=== PATIENT | male | born 1975 | race Caucasian/White ===

== ENCOUNTER 2018-01-22 09:32 | Emergency (ER) | payer BC, MEDICAID ==
[2018-01-22 09:58] VITALS: BP 137/83
--- NOTE | 2018-01-22 11:07 | UC ---
Complaint Male HPI - HPI Summary HPI Summary: patient states he has had burning urination for about 7 days, which improved intermittently but recurred yesterday. He noticed blood as he wipped off after voiding in the morning. Denies fever, chills or flank pain. Denies history of STD, penile discharge or history of kidney stones. Denies trauma or medicaitons , denies epistaxis, melena or any triggers such as exercise or sexual intercourse. States he does not take any medications - History of Current Complaint Chief Complaint: UCGU Stated Complaint: URINARY Time Seen by Provider: 01/22/18 10:38 Hx Obtained From: Patient Onset/Duration: Sudden Onset, Lasting Days Timing: Intermittent, Lasting Seconds Severity Initially: Mild Severity Currently: Mild Pain Intensity: 1 Location: None Character: Burning Aggravating Factor(s): Voiding Alleviating Factor(s): Nothing Associated Signs And Symptoms: Positive: Negative - Risk Factors Testicular Torsion: Negative - Allergies/Home Medications Allergies/Adverse Reactions: Allergies Allergy/AdvReac Type Severity Reaction Status Date / Time some med that starts w/ S Allergy See Comment Uncoded 01/22/18 09:57 Home Medications: Home Medications NK [No Home Medications Reported] 01/22/18 [History Confirmed 01/22/18] PMH/Surg Hx/FS Hx/Imm Hx Previously Healthy: Yes - Surgical History Surgical History: None - Social History Alcohol Use: Weekly Alcohol Amount: 1-2 times weekly Substance Use Type: None Smoking Status (MU): Never Smoked Tobacco Review of Systems Constitutional: Negative Genitourinary: Dysuria, Hematuria All Other Systems Reviewed And Are Negative: Yes Physical Exam Triage Information Reviewed: Yes Vital Signs: Initial Vital Signs Temp 98.5 F 01/22/18 09:52 Pulse 59 01/22/18 09:52 Resp 16 01/22/18 09:52 BP 137/83 01/22/18 09:52 Pulse Ox 99 01/22/18 09:52 Vital Signs Reviewed: Yes Eyes: Positive: Conjunctiva Clear ENT: Positive: Pharynx normal Neck: Positive: Supple, Nontender, No Lymphadenopathy Respiratory: Positive: Chest non-tender, Lungs clear, Normal breath sounds, No respiratory distress Cardiovascular: Positive: RRR, No Murmur, Pulses Normal, Brisk Capillary Refill Abdomen Description: Positive: Nontender, No Organomegaly, Soft Bowel Sounds: Positive: Present Male Genital Exam: Positive: Normal Genitalia Complaint Male Course/Dx - Course Course Of Treatment: history of intermittent dysuria for a week and hematuria since this morning, UA shows blood and no other findings, will await results of Urine Culture and gc/chl. Some common differential Diagnosis d/w patient, to f/ u with PCP for f/u testing/sonogram kidney/bladder and complete urinanalysis - Differential Dx/Diagnosis Provider Diagnoses: hematuria. Dysuria Discharge - Sign-Out/Discharge Documenting (check all that apply): Discharge/Admit/Transfer - Discharge Plan Condition: Stable Disposition: HOME Referrals: Bobby Ledesma MD [Primary Care Provider] - - Billing Disposition and Condition Condition: STABLE Disposition: Home
--- NOTE | 2018-01-23 15:41 | UC ---
- Progress Note Progress Note: urine culture - neg growth final no change ljj 01/23/2018 Discharge - Sign-Out/Discharge Documenting (check all that apply): Post-Discharge Follow Up - Discharge Plan Condition: Stable Disposition: HOME Patient Education Materials: Hematuria (ED), Dysuria (ED) Referrals: Bobby Ledesma MD [Primary Care Provider] - - Billing Disposition and Condition Condition: STABLE Disposition: Home
== END 2018-01-22 11:32 | disposition home or self-care (01) ==
LOC: UCCORT 09:32
DX: R31.9 Hematuria, unspecified (principal); R30.0 Dysuria
CPT/HCPCS: 81003; 87086; 87491; 87591; 99211; G0463